=== PATIENT | male | born 1970 | race Caucasian/White ===

== ENCOUNTER 2017-03-11 15:22 | Inpatient (IN) | payer OTHER ==
[~2017-03-11] VITALS: Ht 198.1 cm; Wt 94.8 kg
[2017-03-11 16:00] VITALS: BP 143/91
--- NOTE | 2017-03-11 16:00 | NUR ---
Pre-admission Notes: Client is seen in intake at this time. Alert and oriented x 4. Verbally responsive. Able to make needs known. Appears anxious and tremulous. Educated patient on the admission process and able to verbalize understanding. Able to answer questions appropriately regarding the admission process. He states that he is allergic to animal dander, pollen and grass. Denies any seizure history. Has past medical hx of Depression, HIV, AIDS, HTN and Gastric Bypass Surgery. He states that he is here to detox from ETOH. VS: BP 143/96 Pulse 96, Temp 98.[address] 1/10 on the left elbow due to the plane ride. CIWA 4 Dr. Riggs made aware of patient's arrival in intake.
[2017-03-11] MEDS ORDERED: DOLU50TA PO (16:24)
[2017-03-11] MEDS ORDERED: ESCI10TA PO (16:24)
[2017-03-11] MEDS ORDERED: EMTR1TAB13 PO (16:24)
--- NOTE | 2017-03-11 16:25 | NUR ---
Admission Note: Admitted a 47 year old male from [place] under the care of Dr. Ceasar Riggs who states that he is here to safely detox from ETOH. He reports allergies to grass, animal dander, and pollen extracts. Alert and oriented x 4. Able to make his needs known. No changes noted in LOC since pre-assessment. Respirations even and unlabored. No SOB. No cough. No congestion noted. Skin warm and dry to touch. Abdomen soft and non-distended. No complains of N/V/D or constipation noted. LBM was today. Appears flushed. Body search done. No contraband was found. Skin search done. No open lesions noted. No rashes. No skin breakdown. Voids independently. Able to provide urine for UDS. Ambulatory with steady gait. Patient denies any seizure history. Reports past medical hx of depression, HIV, AIDS, and gastric bypass on 04/2016 and HTN. He states that this is his first time in detox and his longest period of sobriety was 5 years 15 years ago. His PCP is Dr. Monzon which he has seen 5 months ago. He reports drinking 12 ounces of Vodka q 3 days since 2015. He first started drinking at 17 years old and his last drink was on 03/08/2017. Patient brought in home medication and education was provided regarding unit's policy and protocols. Patient verbalized good understanding. Call light kept in reach. Dr. Riggs made aware of patient's arrival in the unit and report was given.
[2017-03-11 16:26] LABS: *AMPHETAMINE, URINE NEGATIVE (NEGATIVE); *BARBITURATE, URINE NEGATIVE (NEGATIVE); *CANNABINOID, URINE NEGATIVE (NEGATIVE); *COCCAINE, URINE NEGATIVE (NEGATIVE); *OPIATE, URINE NEGATIVE (NEGATIVE); *PHENCYCLIDINE SCREEN,URINE NEGATIVE (NEGATIVE)
[2017-03-11] MEDS ORDERED: MAGNESIUM HYDROXIDE 30 ML LIQUID UDC PO PRN (17:15)
[2017-03-11] MEDS ORDERED: MAG HYDROX/AL HYDROX/SIMETH 30 ML LIQUID UDC PO PRN (17:15)
[2017-03-11] MEDS ORDERED: ONDANSETRON ODT 4 MG TAB.RAPDIS SL PRN (17:15)
[2017-03-11] MEDS ORDERED: LOPERAMIDE HCL 2 MG CAPSULE PO PRN ×2 (17:15)
[2017-03-11] MEDS ORDERED: CLONIDINE HCL 0.1 MG TABLET PO PRN (17:15)
[2017-03-11] MEDS ORDERED: LORAZEPAM 2 MG/1 ML VIAL IM PRN (17:15)
[2017-03-11] MEDS ORDERED: MIRALAX 17 GM POWD.PACK PO PRN (17:15)
[2017-03-11] MEDS ORDERED: ONDANSETRON 4 MG/2 ML VIAL IM PRN (17:15)
[2017-03-11] MEDS ORDERED: ACETAMINOPHEN 325 MG TABLET PO PRN (17:15)
[2017-03-11] MEDS ORDERED: IBUPROFEN 400 MG TABLET PO PRN (17:15)
[2017-03-11] MEDS ORDERED: LORAZEPAM 1 MG TABLET PO PRN ×2 (17:15)
[2017-03-11] MEDS ORDERED: THIAMINE HCL 200 MG/2 ML VIAL IM ONE (17:15)
--- NOTE | 2017-03-11 18:15 | NUR ---
Vitamin B1 injection: Patient refused Vitamin B1 injection at this time. Educated patient on the risk and benefits but patient still refused.
--- NOTE | 2017-03-11 18:43 | NUR ---
Ibuprofen 400mg PO given: Patient noted with complain of 4/10 pain to left elbow. Medicated patient with Ibuprofen 400 mg PO as ordered. Will monitor for effectiveness.
--- NOTE | 2017-03-11 19:26 | NUR ---
End of Shift Notes: Patient is a 47 year old male admitted for ETOH dependence who was placed on PRNs at this time. PRN Motrin was given due to left elbow pain at 1843 with results pending. On fall and seizure precautions. Last CIWA 4. Will continue to monitor.
--- NOTE | 2017-03-11 19:46 | NUR ---
RECEIVED IN [facility]. PATIENT IS HERE TO DETOX OFF ALCOHOL. LAB DRAWN AT THIS TIME. DENIES S/S OF WITHDRAWAL SYMPTOMS AT THIS TIME. WA 3. WILL CONTINUE TO MONITOR FOR COMFORT AND SAFETY.
[2017-03-11 19:47] LABS: ALANINE AMINOTRANSFERASE 19 U/L (16-63); ALKALINE PHOSPHATASE 75 U/L (50-136); AMYLASE 31 U/L (25-115); ASPARTATE AMINOTRANSFERASE 11 U/L (15-37); BILIRUBIN,TOTAL 0.8 mg/dL (0.2-1.0); CARBON DIOXIDE 27 mmol/L (21-32); CHLORIDE 107 mmol/L (98-107); CREATININE 0.9 mg/dL (0.6-1.3); GLUCOSE 88 mg/dL (74-106); LIPASE 146 U/L (73-393); POTASSIUM 3.9 mmol/L (3.5-5.1); TOTAL PROTEIN, SERUM 7.3 g/dL (6.4-8.2); UREA NITROGEN, BLOOD 14 mg/dL (7-18)
[2017-03-11 19:48] LABS: ETHANOL < 3 MG/DL (0-0)
[2017-03-11 19:51] LABS: BASOPHILS # (AUTO) 0.1 K/uL (0.0-8.0); BASOPHILS % (AUTO) 0.9 % (0.0-2.0); EOSINOPHILS # (AUTO) 0.1 K/uL (0.0-0.7); HEMATOCRIT 48.8 % (40-50); HEMOGLOBIN 16.6 G/DL (14.0-18.0); LYMPHOCYTES # (AUTO) 1.9 K/UL (0.8-4.8); LYMPHOCYTES % (AUTO) 31.4 % (20.5-51.5); MEAN CORPUSCULAR HEMOGLOBIN 32.1 UUG (27.0-31.0); MEAN CORPUSCULAR HGB CONC 34 g/dL (32.0-37.0); MEAN CORPUSCULAR VOLUME 94.8 FL (82.0-92.0); MONOCYTES # (AUTO) 0.4 K/UL (0.1-1.30); MONOCYTES % (AUTO) 6.6 % (0.0-11.0); NEUTROPHILS # (AUTO) 3.4 K/UL (1.8-8.9); NEUTROPHILS % (AUTO) 60.1 % (38.5-71.5); PLATELET COUNT (AUTO) 208 K/UL (150-450); RED BLOOD CELL COUNT(AUTO) 5.15 MIL/UL (4.7-6.1); WHITE BLOOD COUNT (AUTO) 5.9 K/UL (4.0-11.2)
[2017-03-11 20:00] VITALS: BP 138/95
[2017-03-11] MEDS: DESCOVY 200MG/25MG PO SCH (21:49)
[2017-03-11] MEDS: TIVICAY 50 MG PO SCH (21:49)
[2017-03-12] VITALS: BP 120/72
[2017-03-12 04:00] VITALS: BP 107/74
--- NOTE | 2017-03-12 06:46 | NUR ---
END OF SHIFT NOTE.Patient is a 47 year old male admitted for ETOH dependence who was placed on PRNs meds at this time. PRN Motrin was given due to left elbow pain with good results. On fall and seizure precautions. Last CIWA 4. Will continue to monitor, call light within reach.
--- NOTE | 2017-03-12 07:00 | NUR ---
Start of Shift Notes: Received patient in his room. Alert and oriented x 4. Verbally responsive. Able to make his needs known. No changes in LOC noted. Denies S/I or H/I. No AV hallucinations noted. Respirations even and unlabored No SOB noted. Skin warm and dry to touch. Abdomen soft and non-distended with (+) BS in all 4 quadrants. No complains of N/V/D or constipation noted. Bladder non-distended. No complains of dysuria noted. Voids independently. Patient is a 47 year old male admitted for ETOH dependence who was placed on PRNs at this time to manage his ETOH withdrawal. Prior to admission, patient was drinking 4oz of Vodka q 3 days since May 2016. Has past medical hx of HIV, Depression, AIDS, HTN and gastric bypass surgery. Educated patient on his current plan of care for the day and his medication regimen. Encouraged oral fluid intake and encouraged group participation to learn new skills to prevent relapse. Will continue to monitor.
[2017-03-12 08:00] VITALS: BP 138/91
[2017-03-12] MEDS ORDERED: TUBERCULIN,PURIF.PROT.DERIV. 5 TU/0.1 ML TEST ID ONE (09:00)
[2017-03-12] MEDS: THIAMINE HCL 100 MG TABLET PO SCH (09:16)
[2017-03-12] MEDS: FOLIC ACID 1 MG TABLET PO SCH (09:16)
[2017-03-12] MEDS: MULTIVITAMINS,THERAPEUTIC TABLET PO SCH (09:16)
--- NOTE | 2017-03-12 09:18 | NUR ---
TB test refused: Patient refused TB test at this time. Notified MD Riggs and orders obtained order for CXR. Orders noted and carried out.
[2017-03-12 12:00] VITALS: BP 132/90
[2017-03-12 15:51] LABS: *AMPHETAMINE, URINE NEGATIVE (NEGATIVE); *BARBITURATE, URINE NEGATIVE (NEGATIVE); *CANNABINOID, URINE NEGATIVE (NEGATIVE); *COCCAINE, URINE NEGATIVE (NEGATIVE); *OPIATE, URINE NEGATIVE (NEGATIVE); *PHENCYCLIDINE SCREEN,URINE NEGATIVE (NEGATIVE)
[2017-03-12 16:00] VITALS: BP 114/82
--- NOTE | 2017-03-12 18:59 | NUR ---
End of Shift Notes: Patient continues to be on PRNs at this time to manage ETOH withdrawal symptoms. Patient has discharge plans tomorrow. UDS in and resulted. Withdrawal symptoms were closely monitored. Initial CIWA 2, Last CIWA 2. Patient presented with tremors felt and mild sweats. VS monitored closely q 4 hours. No significant abnormalities noted. Patient was able to participate in group and activities despite his withdrawal symptoms. Call light in reach. On fall and seizure precautions. All needs met and attended. Will continue to monitor closely.
--- NOTE | 2017-03-12 19:50 | NUR ---
START OF SHIFT Received patient in his room. Alert and oriented x 4. Verbally responsive. Able to make his needs known. No changes in LOC noted. Patient is a 47 year old male admitted for ETOH dependence who was placed on PRNs at this time to manage his ETOH withdrawal. Prior to admission, patient was drinking 4oz of Vodka q 3 days since May 2016. Has past medical hx of HIV, Depression, AIDS, HTN and gastric bypass surgery. Educated patient on his current plan of care for the day and his medication regimen. Encouraged oral fluid intake and encouraged group participation to learn new skills to prevent relapse. Will continue to monitor.
[2017-03-12 20:00] VITALS: BP 126/81
[2017-03-12] MEDS ORDERED: ESCITALOPRAM OXALATE 10 MG TABLET PO SCH (21:00)
[2017-03-12] MEDS: DESCOVY 200MG/25MG PO SCH (21:16)
[2017-03-12] MEDS: TIVICAY 50 MG PO SCH (21:16)
[2017-03-13 00:35] VITALS: BP 115/80
--- NOTE | 2017-03-13 04:00 | NUR ---
4am vital signs Pt decline vital signs at 4am. Addendum: 03/13/17 at 0504 by DORA DIOR RN Amended: Links added.
--- NOTE | 2017-03-13 07:03 | NUR ---
END OF SHIFT NOTE Patient has discharge plans for today. VS monitored closely q 4 hours. No significant abnormalities noted. Call light in reach. On fall and seizure precautions. Pt slept 5hrs uninterrupted, intake of 750ml, and urinated twice. All needs met and attended. Will continue to monitor closely.
--- NOTE | 2017-03-13 07:15 | NUR ---
start of shift note: received pt from biostatistics director nurse. pt is in stable condition at this time no s/s of pain or discomfort. pt's last ciwa is 3. pt is set to discharge today. will assist pt in discharging and will continue to monitor pt for any changes.
[2017-03-13] MEDS: MULTIVITAMINS,THERAPEUTIC TABLET PO SCH (08:59)
[2017-03-13] MEDS: FOLIC ACID 1 MG TABLET PO SCH (08:59)
[2017-03-13] MEDS: THIAMINE HCL 100 MG TABLET PO SCH (08:59)
--- NOTE | 2017-03-13 09:45 | NUR ---
discharge note: pt left the unit in stable condition no s/s of pain, discomfort or any withdrawal symptoms. pt teaching administered and pt verbalized understanding. pt's all personal belongings were returned and pt will be transferred to [facility] via private car.
[2017-03-13 14:12] LABS: HEPATITIS B SURFACE AG Negative (Negative)
== END 2017-03-13 09:45 | disposition other institution (70) | DRG 895 ==
LOC: SRC 15:22
PROVIDERS: ADMIT Internal Medicine; ATTEND Internal Medicine
PROC: HZ2ZZZZ Detoxification Services for Substance Abuse Treatment (ICD-10-PCS; principal; 2017-03-11)
PROC: HZ41ZZZ Group Counseling for Substance Abuse Treatment, Behavioral (ICD-10-PCS; 2017-03-12)
DX: F10.230 Alcohol dependence with withdrawal, uncomplicated (principal); I10 Essential (primary) hypertension; F32.9 Major depressive disorder, single episode, unspecified; Y90.0 Blood alcohol level of less than 20 mg/100 ml; Z98.84 Bariatric surgery status; F17.210 Nicotine dependence, cigarettes, uncomplicated; Z79.899 Other long term (current) drug therapy
CPT/HCPCS: 36415; 70030-TC; 71010; 80307; 83690; 83735; 85025; 86592; 86705; 86803; 87340; 87806; A4663; G0480; J3411